=== PATIENT | female | born 1955 | race Caucasian/White ===

== ENCOUNTER 2018-04-19 14:03 | Emergency (ER) | payer OTHER, SELFPAY ==
[2018-04-19 14:08] VITALS: BP 163/88; PULSE 68; RESP 15; TEMP 36.8; O2SAT 99; BMI 20.7
--- NOTE | 2018-04-19 14:31 | DI.RAD.S_ITS ---
PROCEDURE: XR CHEST 1V INDICATIONS: chest pain TECHNIQUE: One view of the chest was acquired. COMPARISON: None. FINDINGS: Surgical changes and devices: None. Lungs and pleura: No pleural effusions or pneumothorax. There are paired nodular opacities in the lung bases compatible with nipple shadows. Mild apical pleural parenchymal thickening is demonstrated in the lung apices compatible with scarring. No acute consolidation. Mediastinum: Mediastinal contours appear normal. Heart size is normal. Bones and chest wall: No suspicious bony lesions. There is a mild rightward curvature of the thoracic spine. Overlying soft tissues appear unremarkable. IMPRESSION: 1. No definite acute cardiopulmonary disease. Dictated by: Micah Pride M.D. on 04/19/2018 at 15:10 Approved by: Micah Pride M.D. on 04/19/2018 at 15:12
[2018-04-19 14:36] LABS: Add Manual Diff / Slide Review NO; Basophils Percent Auto 1.1 % (0-2); Hematocrit 39.5 % (36-46); Hemoglobin 13.9 g/dL (12.0-16.0); Lymphocytes Percent Auto 37.4 % (25-40); Mean Corpuscular HGB Conc 35.2 % (30-36); Mean Corpuscular Hemoglobin 31.9 PG (26-34); Mean Corpuscular Volume 90.7 fL (80-100); Neutrophils Absolute Auto 2200 /uL (3000-5900); Neutrophils Percent Auto 52.5 % (50-75); Platelet Count 285 X10^3/uL (150-400); Red Blood Cell Count 4.36 X10^6/uL (4.0-5.2); Red Cell Distribution Width 12.2 % (11.6-14.8); White Blood Cell Count 4.2 X10^3/uL (4.5-11.0)
--- NOTE | 2018-04-19 14:42 | ED.CHESTPAIN ---
HPI - Chest Pain <DARYL Griffith - Last Filed: 04/19/18 18:04> General Chief Complaint: Chest Pain Stated Complaint: states high blood pressure, Chest Tightness,abd pa Time Seen by Provider: 04/19/18 14:28 Source: patient Mode of arrival: ambulatory Limitations: no limitations History of Present Illness HPI narrative: Patient is a 62-year-old female nonsmoker who presents with a chief complaint of chest tightness since approximately Wednesday. She states she has a history of high blood pressure and takes 5 mg of lisinopril nightly. She states last night she took 10 mg of lisinopril in order to get her blood pressure down. She says that her highest blood pressure at home was below 170 systolic. She denies any nausea vomiting or diarrhea. She denies any abdominal pain. She says she had a slight headache, but not bad enough to take Motrin. She describes her chest pain as a tightness throughout her chest. She has not taken anything at home. She denies any cough congestion or shortness of breath. Related Data Home Medications Medication Instructions Recorded Confirmed lisinopril 5 mg PO QPM 04/19/18 04/19/18 multivitamin 1 tab PO DAILY 04/19/18 04/19/18 Allergies Allergy/AdvReac Type Severity Reaction Status Date / Time No Known Drug Allergies Allergy Verified 04/19/18 14:07 Review of Systems <DARYL Griffith - Last Filed: 04/19/18 18:04> Review of Systems GENERAL: Denies chills, fatigue, malaise, fever, sweats. HEENT: Denies sinus pain, ear pain, sore throat, difficulty swallowing, dizziness. RESPIRATORY: Denies dyspnea, cough, wheezing, hemoptysis, sputum. CARDIOVASCULAR: See HPI GASTROINTESTINAL: Denies nausea, vomiting, abdominal pain, diarrhea, constipation, melena. : Denies dysuria, frequency, incontinence, hematuria, urinary retention. MUSCULOSKELETAL: denies weakness, joint pain, or bony pain SKIN: Denies rash, skin lesions, or other NEUROLOGIC: Denies weakness, headache, numbness, change in speech, confusion, seizures, incoordination. PSYCHIATRIC: No concerning psychosocial issues. 12 point review of systems is negative except for those stated above Exam <DARYL Griffith - Last Filed: 04/19/18 18:04> Narrative Exam Narrative: GENERAL: This is a well-nourished, well-developed patient, lying on back. HEAD: Atraumatic. Normocephalic. No temporal or scalp tenderness. EYES: Pupils equal round and reactive. Extraocular motions intact. No scleral icterus. No injection or drainage. ENT: Nose without bleeding, purulent drainage or septal hematoma. Throat without erythema, tonsillar hypertrophy or exudate. Uvula midline. Airway patent. NECK: Trachea midline. No JVD or lymphadenopathy. Supple, nontender, no meningeal signs. CARDIOVASCULAR: Regular rate and rhythm without murmurs, gallops, or rubs. RESPIRATORY: Clear to auscultation. Breath sounds equal bilaterally. No wheezes, rales, or rhonchi. No cough. No increased respiratory effort. No accessory muscle use. GASTROINTESTINAL: Abdomen soft, non-tender, nondistended. No hepato-splenomegaly, or palpable masses. No guarding. EXTREMITIES: No clubbing, cyanosis, or edema. No joint tenderness, effusion, or edema noted. BACK: Nontender without deformity or crepitance. No flank tenderness. NEURO: AOx3. SKIN: No rash or erythema. Initial Vital Signs Initial Vital Signs: Vital Signs Temperature 98.2 F 04/19/18 14:08 Pulse Rate 68 04/19/18 14:08 Respiratory Rate 15 04/19/18 14:08 Blood Pressure 163/88 H 04/19/18 14:08 Pulse Oximetry 99 04/19/18 14:08 <Soraya Garza DO - Last Filed: 04/20/18 11:43> Initial Vital Signs Initial Vital Signs: Vital Signs Temperature 98.2 F 04/19/18 14:08 Pulse Rate 68 04/19/18 14:08 Respiratory Rate 15 04/19/18 14:08 Blood Pressure 163/88 H 04/19/18 14:08 Pulse Oximetry 99 04/19/18 14:08 Course <DARYL GriffithBC - Last Filed: 04/19/18 18:04> Orders Ordered: Discontinued Medications Aspirin (Aspirin Chew) 324 mg PO NOW ONE Stop: 04/19/18 14:32 Last Admin: 04/19/18 14:46 Dose: 324 mg Sodium Chloride (Normal Saline 0.9%) 1,000 mls @ 150 mls/hr IV CONT KYLE Last Infusion: 04/19/18 16:51 Dose: 0 mls/hr Admin: 04/19/18 14:47 Dose: 150 mls/hr Vital Signs - 8 hr 04/19/18 14:08 04/19/18 15:30 04/19/18 16:00 Temperature 98.2 F Pulse Rate 68 71 Respiratory Rate 15 19 Blood Pressure 163/88 H Blood Pressure [Right Arm] 132/75 123/66 Pulse Oximetry 99 97 04/19/18 17:12 04/19/18 17:32 Temperature 98.2 F Pulse Rate 72 62 Respiratory Rate 14 19 Blood Pressure 135/75 Blood Pressure [Right Arm] 132/87 Pulse Oximetry 98 96 <Soraya Garza DO - Last Filed: 04/20/18 11:43> Orders Ordered: Discontinued Medications Aspirin (Aspirin Chew) 324 mg PO NOW ONE Stop: 04/19/18 14:32 Last Admin: 04/19/18 14:46 Dose: 324 mg Sodium Chloride (Normal Saline 0.9%) 1,000 mls @ 150 mls/hr IV CONT KYLE Last Infusion: 04/19/18 16:51 Dose: 0 mls/hr Admin: 04/19/18 14:47 Dose: 150 mls/hr Vital Signs - 8 hr 04/19/18 14:08 04/19/18 15:30 04/19/18 16:00 Temperature 98.2 F Pulse Rate 68 71 Respiratory Rate 15 19 Blood Pressure 163/88 H Blood Pressure [Right Arm] 132/75 123/66 Pulse Oximetry 99 97 04/19/18 17:12 04/19/18 17:32 Temperature 98.2 F Pulse Rate 72 62 Respiratory Rate 14 19 Blood Pressure 135/75 Blood Pressure [Right Arm] 132/87 Pulse Oximetry 98 96 MDM - Chest Pain <CONNOR Griffith - Last Filed: 04/19/18 18:04> Lab Data Result diagrams: 04/19/18 14:25 04/19/18 14:25 Lab Results 04/19/18 04/19/18 04/19/18 Range/Units 14:25 14:25 16:30 WBC 4.2 L (4.5-11.0) X10^3/uL RBC 4.36 (4.0-5.2) X10^6/uL Hgb 13.9 (12.0-16.0) g/dL Hct 39.5 (36-46) % MCV 90.7 (80-100) fL MCH 31.9 (26-34) PG MCHC 35.2 (30-36) % RDW 12.2 (11.6-14.8) % Plt Count 285 (150-400) X10^3/uL Neut % (Auto) 52.5 (50-75) % Lymph % (Auto) 37.4 (25-40) % [place] % (Auto) 8.0 (3-14) % Eos % (Auto) 1.0 L (2-4) % Baso % (Auto) 1.1 (0-2) % Neut # (Auto) 2200 L (1610-8103) /uL Sodium 143 (137-145) mmol/L Potassium 3.7 (3.4-5.1) mmol/L Chloride 102 (98-107) mmol/L Carbon Dioxide 28 (22-32) mmol/L BUN 10 (7-17) mg/dL Creatinine 0.60 (0.52-1.04) mg/dL Estimated GFR > 60.0 (>60) mL/min BUN/Creatinine Ratio 16.7 (6-22) Glucose 90 (80-110) mg/dL Calcium 9.0 (8.4-10.2) mg/dL Total Bilirubin 0.3 (0.2-1.3) mg/dL AST 36 (14-36) IU/L ALT 37 (9-52) IU/L Alkaline Phosphatase 60 (38-126) U/L Total Creatine Kinase 217 H 188 H (30-135) U/L CK-MB (CK-2) 1.56 1.35 (<2.37) ng/mL CK-MB (CK-2) Rel Index 0.7 L 0.7 L (1.5-5.0) % Troponin I < 0.012 < 0.012 (0.01-0.034) ng/mL Total Protein 7.4 (6.3-8.2) g/dL Albumin 4.6 (3.5-5.0) g/dL Globulin 2.8 (1.7-4.1) g/dL Albumin/Globulin Ratio 1.6 (1.0-2.8) Lipase 144 (23-300) U/L Imaging Data Chest x-ray: Radiologist's impression: [address] [address] XRay Report Signed Patient: Camilla Lr JMR#: [id number] : 5Acct:[id number] Age/Sex: 62 / FDate of Service: 04/19/18 Loc: ED Accession Number: [id number] Procedure: XR chest 1V Ordering Provider: Soraya Garza D.O. PROCEDURE: XR CHEST 1V INDICATIONS: chest pain TECHNIQUE: One view of the chest was acquired. COMPARISON: None. FINDINGS: Surgical changes and devices: None. Lungs and pleura: No pleural effusions or pneumothorax. There are paired nodular opacities in the lung bases compatible with nipple shadows. Mild apical pleural parenchymal thickening is demonstrated in the lung apices compatible with scarring. No acute consolidation. Mediastinum: Mediastinal contours appear normal. Heart size is normal. Bones and chest wall: No suspicious bony lesions. There is a mild rightward curvature of the thoracic spine. Overlying soft tissues appear unremarkable. IMPRESSION: 1. No definite acute cardiopulmonary disease. Dictated by: Micah Pride M.D. on 04/19/2018 at 15:10 Approved by: Micah Pride M.D. on 04/19/2018 at 15:12 [facility] Narrative Medical decision making narrative: Patient is a 62-year-old female who presents with a chief complaint of chest tightness and concern for high blood pressure. Her blood pressure was normal throughout her stay in the emergency department in the 120-130 systolic range. She had a normal CBC, CMP, normal chest x-ray and 2 negative troponins. Her requested that have her outpatient ultrasound performed while she was staying in the emergency department. I discussed that given she presented for chest pain and her ultrasound was a pelvic ultrasound, combined with the fact that she does not have an acute exam, stable vital signs and does not currently have any abdominal pain I would not do her pelvic ultrasound in the emergency department. I discussed follow-up with her primary care. I also discussed at length follow up with her primary care given her concern about her blood pressures. I discussed return precautions the emergency department including chest pain, shortness of breath or concern of [place] or stroke. Patient has been had no questions or concerns upon discharge. <Soraya Garza, DO - Last Filed: 04/20/18 11:43> Lab Data Attestation: I reviewed the patient's lab results. Lab Results 04/19/18 04/19/18 04/19/18 Range/Units 14:25 14:25 16:30 WBC 4.2 L (4.5-11.0) X10^3/uL RBC 4.36 (4.0-5.2) X10^6/uL Hgb 13.9 (12.0-16.0) g/dL Hct 39.5 (36-46) % MCV 90.7 (80-100) fL MCH 31.9 (26-34) PG MCHC 35.2 (30-36) % RDW 12.2 (11.6-14.8) % Plt Count 285 (150-400) X10^3/uL Neut % (Auto) 52.5 (50-75) % Lymph % (Auto) 37.4 (25-40) % [place] % (Auto) 8.0 (3-14) % Eos % (Auto) 1.0 L (2-4) % Baso % (Auto) 1.1 (0-2) % Neut # (Auto) 2200 L (1579-4996) /uL Sodium 143 (137-145) mmol/L Potassium 3.7 (3.4-5.1) mmol/L Chloride 102 (98-107) mmol/L Carbon Dioxide 28 (22-32) mmol/L BUN 10 (7-17) mg/dL Creatinine 0.60 (0.52-1.04) mg/dL Estimated GFR > 60.0 (>60) mL/min BUN/Creatinine Ratio 16.7 (6-22) Glucose 90 (80-110) mg/dL Calcium 9.0 (8.4-10.2) mg/dL Total Bilirubin 0.3 (0.2-1.3) mg/dL AST 36 (14-36) IU/L ALT 37 (9-52) IU/L Alkaline Phosphatase 60 (38-126) U/L Total Creatine Kinase 217 H 188 H (30-135) U/L CK-MB (CK-2) 1.56 1.35 (<2.37) ng/mL CK-MB (CK-2) Rel Index 0.7 L 0.7 L (1.5-5.0) % Troponin I < 0.012 < 0.012 (0.01-0.034) ng/mL Total Protein 7.4 (6.3-8.2) g/dL Albumin 4.6 (3.5-5.0) g/dL Globulin 2.8 (1.7-4.1) g/dL Albumin/Globulin Ratio 1.6 (1.0-2.8) Lipase 144 (23-300) U/L ECG Data Attestation: I personally reviewed and interpreted this ECG as follows: Prior ECG tracings: not available for review Interpretation: Normal sinus rhythm rate [address] changes no T-wave inversions here interval 146 Discharge Plan Departure Patient Disposition: Home Clinical Impression: Chest pain Discharge Date/Time: 04/19/18 17:33 Interventions: ED Discharge Assessment Last Done: 04/19/18 17:32 Instructions: Essential Hypertension, DI for Atypical Chest Pain, DI for Chest Pain Activity Restrictions/Additional Instructions: Your blood pressure has been very stable and healthy in the emergency department. I do not want to change any of her blood pressure medications at this point time. Your lab work came back normal, your EKG was good, and you had 2 sets of normal heart enzymes. Please follow-up with your primary care provider in the next few days. Come back to emergency department for any acute concerns including concern of heart attack or stroke. Prescriptions: No Action multivitamin Tablet 1 tab PO DAILY RF: 0 lisinopril 5 mg tablet 5 mg PO QPM RF: 0 <Soraya Garza DO - Last Filed: 04/20/18 11:43> Cosign ED Attending Claire Attestation: I was immediately available in the department for consultation. Documentation has been reviewed. I agree with assessment and plan.
[2018-04-19 14:43] LABS: Alanine Aminotransferase 37 IU/L (9-52); Albumin 4.6 g/dL (3.5-5.0); Albumin Globulin Ratio 1.6 (1.0-2.8); Alkaline Phosphatase 60 U/L (38-126); Aspartate Aminotransferase 36 IU/L (14-36); BUN Creatinine Ratio 16.7 (6-22); Bilirubin Total 0.3 mg/dL (0.2-1.3); Blood Urea Nitrogen 10 mg/dL (7-17); Carbon Dioxide 28 mmol/L (22-32); Chloride 102 mmol/L (98-107); Creatine Kinase 217 U/L (30-135); Estimated Glomerular Filt Rate > 60.0 mL/min (>60); Globulin 2.8 g/dL (1.7-4.1); Glucose 90 mg/dL (80-110); HEMOLYSIS < 15 (0-50); Lipase 144 U/L (23-300); Potassium 3.7 mmol/L (3.4-5.1); Sodium 143 mmol/L (137-145); Total Protein 7.4 g/dL (6.3-8.2)
--- NOTE | 2018-04-19 14:45 | ED_ITS ---
HPI - Chest Pain <DARYL Griffith - Last Filed: 04/19/18 18:04> General Chief Complaint: Chest Pain Stated Complaint: states high blood pressure, Chest Tightness,abd pa Time Seen by Provider: 04/19/18 14:28 Source: patient Mode of arrival: ambulatory Limitations: no limitations History of Present Illness HPI narrative: Patient is a 62-year-old female nonsmoker who presents with a chief complaint of chest tightness since approximately Wednesday. She states she has a history of high blood pressure and takes 5 mg of lisinopril nightly. She states last night she took 10 mg of lisinopril in order to get her blood pressure down. She says that her highest blood pressure at home was below 170 systolic. She denies any nausea vomiting or diarrhea. She denies any abdominal pain. She says she had a slight headache, but not bad enough to take Motrin. She describes her chest pain as a tightness throughout her chest. She has not taken anything at home. She denies any cough congestion or shortness of breath. Related Data Home Medications Medication Instructions Recorded Confirmed lisinopril 5 mg PO QPM 04/19/18 04/19/18 multivitamin 1 tab PO DAILY 04/19/18 04/19/18 Allergies Allergy/AdvReac Type Severity Reaction Status Date / Time No Known Drug Allergies Allergy Verified 04/19/18 14:07 Review of Systems <DARYL Griffith - Last Filed: 04/19/18 18:04> Review of Systems GENERAL: Denies chills, fatigue, malaise, fever, sweats. HEENT: Denies sinus pain, ear pain, sore throat, difficulty swallowing, dizziness. RESPIRATORY: Denies dyspnea, cough, wheezing, hemoptysis, sputum. CARDIOVASCULAR: See HPI GASTROINTESTINAL: Denies nausea, vomiting, abdominal pain, diarrhea, constipation, melena. : Denies dysuria, frequency, incontinence, hematuria, urinary retention. MUSCULOSKELETAL: denies weakness, joint pain, or bony pain SKIN: Denies rash, skin lesions, or other NEUROLOGIC: Denies weakness, headache, numbness, change in speech, confusion, seizures, incoordination. PSYCHIATRIC: No concerning psychosocial issues. 12 point review of systems is negative except for those stated above Exam <DARYL Griffith - Last Filed: 04/19/18 18:04> Narrative Exam Narrative: GENERAL: This is a well-nourished, well-developed patient, lying on back. HEAD: Atraumatic. Normocephalic. No temporal or scalp tenderness. EYES: Pupils equal round and reactive. Extraocular motions intact. No scleral icterus. No injection or drainage. ENT: Nose without bleeding, purulent drainage or septal hematoma. Throat without erythema, tonsillar hypertrophy or exudate. Uvula midline. Airway patent. NECK: Trachea midline. No JVD or lymphadenopathy. Supple, nontender, no meningeal signs. CARDIOVASCULAR: Regular rate and rhythm without murmurs, gallops, or rubs. RESPIRATORY: Clear to auscultation. Breath sounds equal bilaterally. No wheezes , rales, or rhonchi. No cough. No increased respiratory effort. No accessory muscle use. GASTROINTESTINAL: Abdomen soft, non-tender, nondistended. No hepato-splenomegaly , or palpable masses. No guarding. EXTREMITIES: No clubbing, cyanosis, or edema. No joint tenderness, effusion, or edema noted. BACK: Nontender without deformity or crepitance. No flank tenderness. NEURO: AOx3. SKIN: No rash or erythema. Initial Vital Signs Initial Vital Signs: Vital Signs Temperature 98.2 F 04/19/18 14:08 Pulse Rate 68 04/19/18 14:08 Respiratory Rate 15 04/19/18 14:08 Blood Pressure 163/88 H 04/19/18 14:08 Pulse Oximetry 99 04/19/18 14:08 <Soraya Garza DO - Last Filed: 04/20/18 11:43> Initial Vital Signs Initial Vital Signs: Vital Signs Temperature 98.2 F 04/19/18 14:08 Pulse Rate 68 04/19/18 14:08 Respiratory Rate 15 04/19/18 14:08 Blood Pressure 163/88 H 04/19/18 14:08 Pulse Oximetry 99 04/19/18 14:08 Course <DARYL GriffithBC - Last Filed: 04/19/18 18:04> Orders Ordered: Discontinued Medications Aspirin (Aspirin Chew) 324 mg PO NOW ONE Stop: 04/19/18 14:32 Last Admin: 04/19/18 14:46 Dose: 324 mg Sodium Chloride (Normal Saline 0.9%) 1,000 mls @ 150 mls/hr IV CONT KYLE Last Infusion: 04/19/18 16:51 Dose: 0 mls/hr Admin: 04/19/18 14:47 Dose: 150 mls/hr Vital Signs - 8 hr 04/19/18 14:08 04/19/18 15:30 04/19/18 16:00 Temperature 98.2 F Pulse Rate 68 71 Respiratory Rate 15 19 Blood Pressure 163/88 H Blood Pressure [Right Arm] 132/75 123/66 Pulse Oximetry 99 97 04/19/18 17:12 04/19/18 17:32 Temperature 98.2 F Pulse Rate 72 62 Respiratory Rate 14 19 Blood Pressure 135/75 Blood Pressure [Right Arm] 132/87 Pulse Oximetry 98 96 <Soraya Garza DO - Last Filed: 04/20/18 11:43> Orders Ordered: Discontinued Medications Aspirin (Aspirin Chew) 324 mg PO NOW ONE Stop: 04/19/18 14:32 Last Admin: 04/19/18 14:46 Dose: 324 mg Sodium Chloride (Normal Saline 0.9%) 1,000 mls @ 150 mls/hr IV CONT KYLE Last Infusion: 04/19/18 16:51 Dose: 0 mls/hr Admin: 04/19/18 14:47 Dose: 150 mls/hr Vital Signs - 8 hr 04/19/18 14:08 04/19/18 15:30 04/19/18 16:00 Temperature 98.2 F Pulse Rate 68 71 Respiratory Rate 15 19 Blood Pressure 163/88 H Blood Pressure [Right Arm] 132/75 123/66 Pulse Oximetry 99 97 04/19/18 17:12 04/19/18 17:32 Temperature 98.2 F Pulse Rate 72 62 Respiratory Rate 14 19 Blood Pressure 135/75 Blood Pressure [Right Arm] 132/87 Pulse Oximetry 98 96 MDM - Chest Pain <CONNOR Griffith - Last Filed: 04/19/18 18:04> Lab Data Result diagrams: 04/19/18 14:25 04/19/18 14:25 Lab Results 04/19/18 04/19/18 04/19/18 Range/Units 14:25 14:25 16:30 WBC 4.2 L (4.5-11.0) X10^3/uL RBC 4.36 (4.0-5.2) X10^6/uL Hgb 13.9 (12.0-16.0) g/dL Hct 39.5 (36-46) % MCV 90.7 (80-100) fL MCH 31.9 (26-34) PG MCHC 35.2 (30-36) % RDW 12.2 (11.6-14.8) % Plt Count 285 (150-400) X10^3/uL Neut % (Auto) 52.5 (50-75) % Lymph % (Auto) 37.4 (25-40) % [place] % (Auto) 8.0 (3-14) % Eos % (Auto) 1.0 L (2-4) % Baso % (Auto) 1.1 (0-2) % Neut # (Auto) 2200 L (7807-8124) /uL Sodium 143 (137-145) mmol/L Potassium 3.7 (3.4-5.1) mmol/L Chloride 102 (98-107) mmol/L Carbon Dioxide 28 (22-32) mmol/L BUN 10 (7-17) mg/dL Creatinine 0.60 (0.52-1.04) mg/dL Estimated GFR > 60.0 (>60) mL/min BUN/Creatinine Ratio 16.7 (6-22) Glucose 90 (80-110) mg/dL Calcium 9.0 (8.4-10.2) mg/dL Total Bilirubin 0.3 (0.2-1.3) mg/dL AST 36 (14-36) IU/L ALT 37 (9-52) IU/L Alkaline Phosphatase 60 (38-126) U/L Total Creatine Kinase 217 H 188 H (30-135) U/L CK-MB (CK-2) 1.56 1.35 (<2.37) ng/mL CK-MB (CK-2) Rel Index 0.7 L 0.7 L (1.5-5.0) % Troponin I < 0.012 < 0.012 (0.01-0.034) ng/mL Total Protein 7.4 (6.3-8.2) g/dL Albumin 4.6 (3.5-5.0) g/dL Globulin 2.8 (1.7-4.1) g/dL Albumin/Globulin Ratio 1.6 (1.0-2.8) Lipase 144 (23-300) U/L Imaging Data Chest x-ray: Radiologist's impression: [address] [address] XRay Report Signed Patient: Camilla Lr JMR#: [id number] : 5Acct:[id number] Age/Sex: 62 / FDate of Service: 04/19/18 Loc: ED Accession Number: [id number] Procedure: XR chest 1V Ordering Provider: Soraya Garza D.O. PROCEDURE: XR CHEST 1V INDICATIONS: chest pain TECHNIQUE: One view of the chest was acquired. COMPARISON: None. FINDINGS: Surgical changes and devices: None. Lungs and pleura: No pleural effusions or pneumothorax. There are paired nodular opacities in the lung bases compatible with nipple shadows. Mild apical pleural parenchymal thickening is demonstrated in the lung apices compatible with scarring. No acute consolidation. Mediastinum: Mediastinal contours appear normal. Heart size is normal. Bones and chest wall: No suspicious bony lesions. There is a mild rightward curvature of the thoracic spine. Overlying soft tissues appear unremarkable. IMPRESSION: 1. No definite acute cardiopulmonary disease. Dictated by: Micah Pride M.D. on 04/19/2018 at 15:10 Approved by: Micah Pride M.D. on 04/19/2018 at 15:12 [facility] Narrative Medical decision making narrative: Patient is a 62-year-old female who presents with a chief complaint of chest tightness and concern for high blood pressure. Her blood pressure was normal throughout her stay in the emergency department in the 120-130 systolic range. She had a normal CBC, CMP, normal chest x-ray and 2 negative troponins. Her requested that have her outpatient ultrasound performed while she was staying in the emergency department. I discussed that given she presented for chest pain and her ultrasound was a pelvic ultrasound, combined with the fact that she does not have an acute exam, stable vital signs and does not currently have any abdominal pain I would not do her pelvic ultrasound in the emergency department. I discussed follow-up with her primary care. I also discussed at length follow up with her primary care given her concern about her blood pressures. I discussed return precautions the emergency department including chest pain, shortness of breath or concern of [place] or stroke. Patient has been had no questions or concerns upon discharge. <Soraya Garza, DO - Last Filed: 04/20/18 11:43> Lab Data Attestation: I reviewed the patient's lab results. Lab Results 04/19/18 04/19/18 04/19/18 Range/Units 14:25 14:25 16:30 WBC 4.2 L (4.5-11.0) X10^3/uL RBC 4.36 (4.0-5.2) X10^6/uL Hgb 13.9 (12.0-16.0) g/dL Hct 39.5 (36-46) % MCV 90.7 (80-100) fL MCH 31.9 (26-34) PG MCHC 35.2 (30-36) % RDW 12.2 (11.6-14.8) % Plt Count 285 (150-400) X10^3/uL Neut % (Auto) 52.5 (50-75) % Lymph % (Auto) 37.4 (25-40) % [place] % (Auto) 8.0 (3-14) % Eos % (Auto) 1.0 L (2-4) % Baso % (Auto) 1.1 (0-2) % Neut # (Auto) 2200 L (1172-8495) /uL Sodium 143 (137-145) mmol/L Potassium 3.7 (3.4-5.1) mmol/L Chloride 102 (98-107) mmol/L Carbon Dioxide 28 (22-32) mmol/L BUN 10 (7-17) mg/dL Creatinine 0.60 (0.52-1.04) mg/dL Estimated GFR > 60.0 (>60) mL/min BUN/Creatinine Ratio 16.7 (6-22) Glucose 90 (80-110) mg/dL Calcium 9.0 (8.4-10.2) mg/dL Total Bilirubin 0.3 (0.2-1.3) mg/dL AST 36 (14-36) IU/L ALT 37 (9-52) IU/L Alkaline Phosphatase 60 (38-126) U/L Total Creatine Kinase 217 H 188 H (30-135) U/L CK-MB (CK-2) 1.56 1.35 (<2.37) ng/mL CK-MB (CK-2) Rel Index 0.7 L 0.7 L (1.5-5.0) % Troponin I < 0.012 < 0.012 (0.01-0.034) ng/mL Total Protein 7.4 (6.3-8.2) g/dL Albumin 4.6 (3.5-5.0) g/dL Globulin 2.8 (1.7-4.1) g/dL Albumin/Globulin Ratio 1.6 (1.0-2.8) Lipase 144 (23-300) U/L ECG Data Attestation: I personally reviewed and interpreted this ECG as follows: Prior ECG tracings: not available for review Interpretation: Normal sinus rhythm rate [address] changes no T-wave inversions here interval 146 Discharge Plan Departure Patient Disposition: Home Clinical Impression: Chest pain Discharge Date/Time: 04/19/18 17:33 Interventions: ED Discharge Assessment Last Done: 04/19/18 17:32 Instructions: Essential Hypertension, DI for Atypical Chest Pain, DI for Chest Pain Activity Restrictions/Additional Instructions: Your blood pressure has been very stable and healthy in the emergency department. I do not want to change any of her blood pressure medications at this point time. Your lab work came back normal, your EKG was good, and you had 2 sets of normal heart enzymes. Please follow-up with your primary care provider in the next few days. Come back to emergency department for any acute concerns including concern of heart attack or stroke. Prescriptions: No Action multivitamin Tablet 1 tab PO DAILY RF: 0 lisinopril 5 mg tablet 5 mg PO QPM RF: 0 <Soraya Garza DO - Last Filed: 04/20/18 11:43> Cosign ED Attending Claire Attestation: I was immediately available in the department for consultation. Documentation has been reviewed. I agree with assessment and plan.
[2018-04-19] MEDS: ASPIRIN 81 MG TAB 324 MG PO (14:46)
[2018-04-19] MEDS: SODIUM CHLORIDE 0.9% 1,000 ML 150 ML IV (14:47)
[2018-04-19 14:58] LABS: CKMB % Relative Index 0.7 % (1.5-5.0); Creatine Kinase MB 1.56 ng/mL (<2.37)
[2018-04-19 15:01] LABS: Troponin I < 0.012 ng/mL (0.01-0.034)
[2018-04-19 15:30] VITALS: BP 132/75; PULSE 71; RESP 19; O2SAT 97
[2018-04-19 16:00] VITALS: BP 123/66
[2018-04-19 16:51] LABS: Creatine Kinase 188 U/L (30-135)
[2018-04-19 17:06] LABS: CKMB % Relative Index 0.7 % (1.5-5.0); Creatine Kinase MB 1.35 ng/mL (<2.37); Troponin I < 0.012 ng/mL (0.01-0.034)
[2018-04-19 17:12] VITALS: BP 132/87; PULSE 72; RESP 14; O2SAT 98
[2018-04-19 17:32] VITALS: BP 135/75; PULSE 62; RESP 19; TEMP 36.8; O2SAT 96
== END 2018-04-19 17:33 | disposition home or self-care (01) ==
PROVIDERS: Emergency Medicine; Emergency Provider Nurse Practitioner Family
DX: R07.89 Other chest pain (principal)
CPT/HCPCS: 36591; 71045; 80053; 82550; 82553; 83690; 84484; 85025; 93005; 93010; 96360; 96361; 99283; 99285

== ENCOUNTER 2021-07-15 10:46 | Emergency (ER) | payer OTHER, SELFPAY ==
[2021-07-15] VITALS (8 sets, daily range): BP systolic 144–184; BP diastolic 79–97; PULSE 57–75; RESP 18; TEMP 36.6; O2SAT 97–100; BMI 21.1
--- NOTE | 2021-07-15 12:09 | ED.BACK ---
HPI - Back Pain/Injury <Esme Ortega PA-C - Last Filed: 07/15/21 18:57> General Chief Complaint: Back Pain/Injury Stated Complaint: Left leg/hip/numbness of foot Time Seen by Provider: 07/15/21 12:05 Source: patient and family History of Present Illness HPI Narrative: 65-year-old female with past medical history hypertension, osteoarthritis presents to the ED with 2 weeks of sciatica. Patient states that she has had lower back and sciatic pain over the past few years, however it has worsened over the last 2 weeks, going down the left leg. Patient endorses some numbness to the left toes. Denies tingling, weakness. Patient denies saddle paresthesias. Patient denies urinary hesitancy, urinary incontinence, bowel incontinence. Patient denies IV drug use. Patient denies neck stiffness, neck pain, fever, chills. Patient denies trauma. Patient endorses that she is physically very active, working out and suspects she might have tweaked her back in the process. Related Data Home Medications Medication Instructions Recorded Confirmed lisinopril 5 mg tablet 5 mg PO QPM 04/19/18 04/19/18 multivitamin 1 tab PO DAILY 04/19/18 04/19/18 Allergies Allergy/AdvReac Type Severity Reaction Status Date / Time No Known Drug Allergies Allergy Verified 04/19/18 14:07 Review of Systems <Esme Ortega PA-C - Last Filed: 07/15/21 18:57> Review of Systems ROS Unobtainable: All systems reviewed & are unremarkable except as noted in HPI and below Constitutional Constitutional: Denies chills, Denies fatigue, Denies fever(s), Denies frequent falls, Denies lethargy and Denies weakness Eyes Eyes: Denies change in vision, Denies eye discharge, Denies irritation and Denies loss of vision ENT Ears, Nose, Mouth, and Throat: Denies change in voice, Denies dizziness, Reports dry mouth, Denies neck pain, Denies sore throat and Denies throat swelling Cardiovascular Cardiovascular: Denies chest pain, Denies irregular heart rhythm, Denies lightheadedness, Denies palpitations, Denies dyspnea, Denies dyspnea on exertion and Denies orthopnea Respiratory Respiratory: Denies cough, Denies dyspnea, Denies dyspnea on exertion and Denies wheezing Gastrointestinal Gastrointestinal: Denies abdominal pain, Denies change in bowel habits, Denies fecal incontinence, Denies diarrhea, Denies nausea and Denies vomiting Genitourinary Genitourinary: Denies hematuria, Denies flank pain, Denies urinary incontinence, Denies urinary hesitancy and Denies urinary urgency Musculoskeletal Musculoskeletal: Reports back pain, Denies muscle weakness, Denies neck pain, Denies numbness, Reports radiating pain into limb and Denies tingling Comments: Lower back pain radiating to the left leg. Numbness in left toes. Denies tingling, weakness Integumentary/Breasts Skin/Breast: Denies pruritus, Denies erythema, Denies rash and Denies wounds Neurologic Neurologic: Denies behavioral changes, Denies confusion, Denies dizziness, Denies frequent falls, Denies loss of vision, Denies numbness, Denies tingling and Denies weakness Comments: No saddle paresthesia Psychiatric Psychiatric: Denies anxiety, Denies behavioral changes, Denies confusion, Denies depression, Denies homicidal ideation and Denies suicidal ideation Endocrine Endocrine: Denies fatigue, Denies flushing and Denies palpitations Hematologic/Lymphatic Hematologic/Lymphatic: Denies easy bruising Allergic/Immunologic Allergic/Immunologic: Denies urticaria, Denies throat swelling and Denies wheezing Patient History <Esme Ortega PA-C - Last Filed: 07/15/21 18:57> Medical History (Updated 07/15/21 @ 17:46 by Esme Ortega PA-C) Hypertension Social History Smoking Status: Never smoker Smoking Status: Never smoker Exam <Esme Ortega PA-C - Last Filed: 07/15/21 18:57> Initial Vital Signs Initial Vital Signs: Vital Signs Pulse Rate 72 07/15/21 11:02 Blood Pressure 184/97 H 07/15/21 11:02 Pulse Oximetry 100 07/15/21 11:02 Const General: cooperative, healthy appearing and comfortable [facility] Head: normal to inspection Eyes General: appearance normal, both eyes and all related structures Neck Neck: normal visual inspection Resp Effort & Inspection: normal respiratory effort Auscultation: clear to auscultation bilaterally Cardio Rate: regular rate Rhythm: regular rhythm Back/Spine/Pelvis Back: normal to inspection, No back tenderness and No CVA tenderness Thoracic/Lumbar Spine: straight leg raise positive (Left leg) Other: No midline tenderness to palpation. Skin General: no rashes or lesions noted Neuro General: patient alert, patient awake and patient oriented x3 Extrem General: normal to inspection Psych Appearance: grossly normal Mental Status: mental status grossly normal <Soraya Garza DO - Last Filed: 07/16/21 07:31> Initial Vital Signs Initial Vital Signs: Vital Signs Pulse Rate 72 07/15/21 11:02 Blood Pressure 184/97 H 07/15/21 11:02 Pulse Oximetry 100 07/15/21 11:02 Course <Esme Ortega PA-C - Last Filed: 07/15/21 18:57> Orders Ordered: Discontinued Medications Ketorolac Tromethamine (Ketorolac 30 Mg/Ml Vial) 15 mg IM NOW ONE Stop: 07/15/21 12:52 Last Admin: 07/15/21 13:10 Dose: 15 mg Documented by: HIRA Lidocaine (Lidocaine Patch 1 Each Adh..Patch) 1 each TOP NOW ONE Stop: 07/15/21 12:53 Last Admin: 07/15/21 13:11 Dose: 1 each Documented by: HIRA Lorazepam (Lorazepam 0.5 Mg Tablet) 1 mg PO NOW ONE Stop: 07/15/21 16:02 Last Admin: 07/15/21 16:16 Dose: 1 mg Documented by: HIRA Vital Signs Vital signs: Vital Signs - 8 hr 07/15/21 11:02 07/15/21 11:03 07/15/21 11:30 Temperature 97.8 F Pulse Rate 72 66 65 Respiratory Rate 18 Blood Pressure 184/97 H 184/97 H 151/79 H Pulse Oximetry 100 99 99 07/15/21 12:00 07/15/21 12:30 07/15/21 16:38 Temperature Pulse Rate 59 L 57 L 75 Respiratory Rate Blood Pressure 144/84 H 151/80 H Pulse Oximetry 98 97 99 07/15/21 16:39 07/15/21 17:59 Temperature Pulse Rate 71 70 Respiratory Rate Blood Pressure 165/79 H 173/85 H Pulse Oximetry 99 97 <DO Rito Buenrostro Last Filed: 07/16/21 07:31> Orders Ordered: Discontinued Medications Ketorolac Tromethamine (Ketorolac 30 Mg/Ml Vial) 15 mg IM NOW ONE Stop: 07/15/21 12:52 Last Admin: 07/15/21 13:10 Dose: 15 mg Documented by: HIRA Lidocaine (Lidocaine Patch 1 Each Adh..Patch) 1 each TOP NOW ONE Stop: 07/15/21 12:53 Last Admin: 07/15/21 13:11 Dose: 1 each Documented by: HIRA Lorazepam (Lorazepam 0.5 Mg Tablet) 1 mg PO NOW ONE Stop: 07/15/21 16:02 Last Admin: 07/15/21 16:16 Dose: 1 mg Documented by: HIRA Vital Signs Vital signs: Vital Signs - 8 hr 07/15/21 11:02 07/15/21 11:03 07/15/21 11:30 Temperature 97.8 F Pulse Rate 72 66 65 Respiratory Rate 18 Blood Pressure 184/97 H 184/97 H 151/79 H Pulse Oximetry 100 99 99 07/15/21 12:00 07/15/21 12:30 07/15/21 16:38 Temperature Pulse Rate 59 L 57 L 75 Respiratory Rate Blood Pressure 144/84 H 151/80 H Pulse Oximetry 98 97 99 07/15/21 16:39 07/15/21 17:59 Temperature Pulse Rate 71 70 Respiratory Rate Blood Pressure 165/79 H 173/85 H Pulse Oximetry 99 97 MDM - Back Pain/Injury <Esme Ortega PA-C - Last Filed: 07/15/21 18:57> Lab Data Labs: Urine Dip Bedside Urine Glucose Negative Bedside Urine Bilirubin - Negative Bedside Urine Ketone - Negative Urine Specific [place] 1.005 Bedside Urine Occult Blood - Negative Bedside Urine pH 6.0 Bedside Urine Protein - Negative Bedside Urine Urobilinogen - Negative Bedside Urine Nitrite - Negative Bedside Urine Leukocytes - Negative Esterase Imaging Data MRI lumbar spine: Radiologist's Impression: PROCEDURE:? MR LUMBAR SPINE WO CON ? INDICATIONS:? Left sided sciatica ? TECHNIQUE:? Noncontrast sagittal T1 spin echo and T2 fast echo, sagittal STIR, axial T1 and T2 fast spin echo through the lumbar spine.? In cases with scoliosis, additional coronal T2 fast spin echo may be performed.? ? COMPARISON:? None. ? FINDINGS:? Image quality:? Excellent.? ? Alignment and Curvature:? Convex left thoracolumbar scoliosis present. ? Bone Marrow:? Marrow is of normal overall signal.? No acute vertebral body compression fractures.? ? Spinal Cord:? Conus medullaris terminates at the L1 level.? Visualized cord demonstrates normal signal and size.? ? Paraspinous Soft Tissues:? No paravertebral masses.? ? T12-L1:? Disc height is maintained.? No central or foraminal stenosis. ? L1-L2:? Disc space narrowing and circumferential disc bulge results in mild central stenosis.? Moderate right and no left foraminal stenosis. ? L2-L3:? Disc space narrowing and circumferential disc bulge present.? No central stenosis.? Moderate right and no left foraminal stenosis ? L3-L4:? Disc space narrowing circumferential disc bulge and hypertrophic facet joints results in mild central stenosis.? No foraminal stenosis present. ? L4-L5:? Circumferential disc bulge and hypertrophic facet joints with ligamentum flavum laxity present.? There is a focal 6 mm left subarticular disc protrusion with inferior migration fills the left lateral recess and extends inferiorly to the inferior aspect of the L5 vertebral body. ? L5-S1:? Disc height is maintained.? No central or foraminal stenosis. ? ? IMPRESSION:? ? 1. L4-5 6 mm left subarticular disc protrusion/extrusion fills the left lateral recess and extends inferiorly behind the L5 vertebral body, displacing the descending nerve root. ? 2. Multilevel degenerative disc disease and arthropathy results in varying degrees of central and foraminal stenosis including moderate right foraminal stenosis at L1-2 and L2-3 ? Approved by: Adriano Caraballo M.D. on 07/15/2021 at 16:37? [facility] Narrative Medical decision making narrative: 65-year-old female with past medical history hypertension, osteoarthritis presents to the ED with 2 weeks of sciatica. Concern for disc herniation versus musculoskeletal sprain/strain. Will give Toradol, lidocaine for pain. Will consider MRI lumbar spine. Will reassess. MRI shows L4-5 6 mm left subarticular disc protrusion/extrusion fills the left lateral recess and extends inferiorly behind the L5 vertebral body, displacing the descending nerve root. Patient will follow up with PCP for PT referral and further treatment. ED return precautions discussed. Patient verbalized understanding. Patient discharged home. <Soraya Garza DO - Last Filed: 07/16/21 07:31> Lab Data Labs: Urine Dip Bedside Urine Glucose Negative Bedside Urine Bilirubin - Negative Bedside Urine Ketone - Negative Urine Specific [place] 1.005 Bedside Urine Occult Blood - Negative Bedside Urine pH 6.0 Bedside Urine Protein - Negative Bedside Urine Urobilinogen - Negative Bedside Urine Nitrite - Negative Bedside Urine Leukocytes - Negative Esterase Discharge Plan Departure Patient Disposition: Home Clinical Impression: Lumbar disc herniation Instructions: DI for Back Pain With Sciatica Activity Restrictions/Additional Instructions: You were evaluated in the ED today for lower back pain radiating down the left leg. Your MRI shows a disc protrusion/extrusion at L4-5. Your symptoms are likely due to the herniated disc impinging on urine your that goes down the leg. You may continue to take ibuprofen, Tylenol for your symptoms. Please follow-up with your PCP as soon as possible for further treatment, referral to physical therapy. Return to the ED if your symptoms worsen, you experience urinary incontinence, stool incontinence, numbness in the genital region, tingling, weakness. Prescriptions: No Action multivitamin Tablet 1 tab PO DAILY 0RF lisinopril 5 mg tablet 5 mg PO QPM 0RF Referrals: Han Boston DO [Primary Care Provider] - <Soraya Garza DO - Last Filed: 07/16/21 07:31> Cosign ED Attending Maria Elenaature Attestation: I was immediately available in the department for consultation. Documentation has been reviewed. I agree with assessment and plan.
--- NOTE | 2021-07-15 12:53 | DI.MRI.S_ITS ---
PROCEDURE: MR LUMBAR SPINE WO CON INDICATIONS: Left sided sciatica TECHNIQUE: Noncontrast sagittal T1 spin echo and T2 fast echo, sagittal STIR, axial T1 and T2 fast spin echo through the lumbar spine. In cases with scoliosis, additional coronal T2 fast spin echo may be performed. COMPARISON: None. FINDINGS: Image quality: Excellent. Alignment and Curvature: Convex left thoracolumbar scoliosis present. Bone Marrow: Marrow is of normal overall signal. No acute vertebral body compression fractures. Spinal Cord: Conus medullaris terminates at the L1 level. Visualized cord demonstrates normal signal and size. Paraspinous Soft Tissues: No paravertebral masses. T12-L1: Disc height is maintained. No central or foraminal stenosis. L1-L2: Disc space narrowing and circumferential disc bulge results in mild central stenosis. Moderate right and no left foraminal stenosis. L2-L3: Disc space narrowing and circumferential disc bulge present. No central stenosis. Moderate right and no left foraminal stenosis L3-L4: Disc space narrowing circumferential disc bulge and hypertrophic facet joints results in mild central stenosis. No foraminal stenosis present. L4-L5: Circumferential disc bulge and hypertrophic facet joints with ligamentum flavum laxity present. There is a focal 6 mm left subarticular disc protrusion with inferior migration fills the left lateral recess and extends inferiorly to the inferior aspect of the L5 vertebral body. L5-S1: Disc height is maintained. No central or foraminal stenosis. IMPRESSION: 1. L4-5 6 mm left subarticular disc protrusion/extrusion fills the left lateral recess and extends inferiorly behind the L5 vertebral body, displacing the descending nerve root. 2. Multilevel degenerative disc disease and arthropathy results in varying degrees of central and foraminal stenosis including moderate right foraminal stenosis at L1-2 and L2-3 Approved by: Adriano Caraballo M.D. on 07/15/2021 at 16:37
[2021-07-15] MEDS: KETOROLAC 30 MG/ML VIAL 15 MG IM (13:10)
[2021-07-15] MEDS: LIDOCAINE PATCH 1 EACH ADH..PATCH TOP (13:11)
[2021-07-15] MEDS: LORazepam 0.5 MG TABLET 1 MG PO (16:16)
== END 2021-07-15 18:00 | disposition home or self-care (01) ==
PROVIDERS: Emergency Provider Student in an Organized Health Care Education/Training Program; PCP Family Medicine
DX: M51.26 Other intervertebral disc displacement, lumbar region (principal)
CPT/HCPCS: 72148; 81003; 96372; 99283; 99284; J1885

== ENCOUNTER 2021-11-19 10:38 | Emergency (ER) | payer OTHER, SELFPAY ==
[2021-11-19] VITALS (7 sets, daily range): BP systolic 156–189; BP diastolic 73–87; PULSE 55–67; RESP 15–18; TEMP 36.2–36.4; O2SAT 97–100; BMI 20.2
--- NOTE | 2021-11-19 10:54 | DI.RAD.S_ITS ---
PROCEDURE: XR CHEST 2V INDICATIONS: shortness of breath TECHNIQUE: 2 views of the chest were acquired. COMPARISON: [facility], , XR CHEST 1V, 04/19/2018, 14:43. FINDINGS: Surgical changes and devices: None. Lungs and pleura: Lungs are clear. No pleural effusions or pneumothorax. Mediastinum: Mediastinal contours are normal. Heart size is normal. Bones and chest wall: Thoraco-lumbar spine scoliosis. No suspicious bony abnormalities. Soft tissues appear unremarkable. IMPRESSION: No acute cardiopulmonary disease process. Dictated by: Deidre Hsieh MD, PhD on 11/19/2021 at 11:31 Approved by: Deidre Hsieh MD, PhD on 11/19/2021 at 11:32
[2021-11-19 12:15] LABS: Add Manual Diff / Slide Review NO; Basophils Absolute Auto 0 /uL (0-100); Basophils Percent Auto 0.7 % (0-2); Eosinophils Absolute Auto 100 /uL (0-450); Eosinophils Percent Auto 2.1 % (2-4); Hematocrit 38.3 % (36-46); Hemoglobin 13.5 g/dL (12.0-16.0); Lymphocytes Absolute Auto 1200 /uL (1100-4500); Lymphocytes Percent Auto 19.1 % (25-40); Mean Corpuscular HGB Conc 35.2 % (30-36); Mean Corpuscular Hemoglobin 32.2 PG (26-34); Mean Corpuscular Volume 91.7 fL (80-100); Monocytes Absolute Auto 700 /uL (0-900); Monocytes Percent Auto 10.6 % (3-14); Neutrophils Absolute Auto 4200 /uL (1500-7000); Neutrophils Percent Auto 67.5 % (50-75); Platelet Count 235 X10^3/uL (150-400); Red Blood Cell Count 4.18 X10^6/uL (4.0-5.2); Red Cell Distribution Width 12.2 % (11.6-14.8); White Blood Cell Count 6.3 X10^3/uL (4.5-11.0)
[2021-11-19 12:24] LABS: Lactate (Lactic Acid) 0.9 mmol/L (0.7-2.1)
[2021-11-19 12:26] LABS: Alanine Aminotransferase 42 IU/L (<35); Albumin 4.5 g/dL (3.5-5.0); Albumin Globulin Ratio 1.7 (1.0-2.8); Alkaline Phosphatase 73 U/L (38-126); Aspartate Aminotransferase 43 IU/L (14-36); BUN Creatinine Ratio 23.3 (6-22); Bilirubin Total 0.6 mg/dL (0.2-1.3); Blood Urea Nitrogen 14 mg/dL (7-17); Calcium 8.7 mg/dL (8.4-10.2); Carbon Dioxide 29 mmol/L (22-32); Chloride 100 mmol/L (98-107); Estimated Glomerular Filt Rate > 60 mL/min (>60); Globulin 2.7 g/dL (1.7-4.1); Glucose 91 mg/dL (80-110); HEMOLYSIS < 15 (0-50); Potassium 4.4 mmol/L (3.4-5.1); Sodium 136 mmol/L (137-145); Total Protein 7.2 g/dL (6.3-8.2)
--- NOTE | 2021-11-19 14:59 | ED.SOB ---
HPI - SOB/Dyspnea <GERMANIA Mejía - Last Filed: 11/19/21 17:35> General Chief Complaint: Shortness of Breath/Dyspnea Stated Complaint: sob at night x7 days getting worse Time Seen by Provider: 11/19/21 14:43 Source: patient Mode of arrival: Ambulatory Limitations: no limitations History of Present Illness HPI Narrative: This is a 65-year-old female presents to emergency department complaining of shortness of breath, especially at night when she lays down, states this has been ongoing for the last seven days and she is had a dry cough for about that time. She denies any history of asthma, COPD, she is not a smoker, states that she takes losartan and Crestor for her blood pressure, she endorses a history of bronchitis in the past. She states that after a coughing fit she feels short of breath and can not get enough air. She feels like this has happened at nighttime and she was afraid that she would not be able to call 911 due to her shortness of breath. She denies any sensation of wheezing, denies any allergies, denies any history of seasonal allergies. She denies any recent fever, denies a productive cough, states that she had a slightly runny nose yesterday but that been it as far as cold symptoms. She states that her son has exercise induced asthma, she has never had this diagnosis but she reports that she feels the way that he has looked during an exacerbation. She states that her primary care provider is Dr. Monserrat Boston. Related Data Home Medications Medication Instructions Recorded Confirmed lisinopril 5 mg tablet 5 mg PO QPM 04/19/18 04/19/18 multivitamin 1 tab PO DAILY 04/19/18 04/19/18 Previous Rx's Medication Instructions Recorded albuterol sulfate 90 mcg/actuation 1 inh inhalation QID PRN shortness 11/19/21 aerosol inhaler of breath or wheezing #6.7 grams benzonatate 200 mg capsule 200 mg PO BID PRN cough #14 caps 11/19/21 methylprednisolone 4 mg tablets in See Rx Instructions PO .COMPLEX 11/19/21 a dose pack (Medrol (Arsenio)) #21 ea Allergies Allergy/AdvReac Type Severity Reaction Status Date / Time No Known Drug Allergies Allergy Verified 11/19/21 10:49 Review of Systems <GERMANIA Mejía - Last Filed: 11/19/21 17:35> Review of Systems Narrative: General: denies fever, chills Head/Neck: denies headache, neck pain Eyes: denies visual changes, eye pain Cardio: denies chest pain, palpitations Respiratory: Endorses shortness of breath at rest, states that it feels tight, denies any current cough, denies wheezing GI: denies abdominal pain, nausea, vomiting, or diarrhea : denies dysuria, hematuria or flank pain MSK: denies new joint pain, muscle weakness or swelling Skin: denies rash, itching or wound Neuro: denies numbness, tingling, dizziness Patient History <GERMANIA Mejía - Last Filed: 11/19/21 17:35> Medical History Hypertension Social History Smoking Status: Never smoker Smoking Status: Never smoker alcohol intake frequency: holidays/special occasions only Substance Use Type: does not use Exam <GERMANIA Mejía - Last Filed: 11/19/21 17:35> Narrative Exam Narrative: Independently reviewed vitals signs and nursing notes. General: cooperative, comfortable, in no acute distress, well groomed Head: atraumatic, symmetrical facial expressions Neck: supple Eyes: equal round and reactive, EOMI, conjunctiva normal Nose: nares patent, no rhinorrhea Mouth/Throat: moist mucus membranes Cardiovascular: regular rate and rhythm, no peripheral edema, warm extremities Respiratory: normal effort, able to speak in complete sentences, no audible wheezing, stridor, or rales. No retractions or tachypnea. Reported improved shortness of breath after MDI, good air movement throughout before and afterwards without wheezes. Respirations unlabored without hypoxia. GI: abdomen soft, nontender to palpation, nondistended, no masses, no exquisite tenderness with exam, without guarding or rebound. MSK: moves all extremities, neurovascularly intact, no weakness, normal tone Skin: brisk capillary refill, no rash, no erythema Neuro: normal speech and cognition, A&O x3 Psych: mental status is grossly normal, congruent mood, normal affect, pleasant and cooperative Initial Vital Signs Initial Vital Signs: Vital Signs Temperature 97.2 F L 11/19/21 10:49 Pulse Rate 64 11/19/21 10:49 Respiratory Rate 15 11/19/21 10:49 Blood Pressure 189/87 H 11/19/21 10:49 Pulse Oximetry 97 11/19/21 10:49 Oxygen Delivery Method 11/19/21 10:49 <Lyndon Stoddard DO - Last Filed: 11/20/21 14:29> Initial Vital Signs Initial Vital Signs: Vital Signs Temperature 97.2 F L 11/19/21 10:49 Pulse Rate 64 11/19/21 10:49 Respiratory Rate 15 11/19/21 10:49 Blood Pressure 189/87 H 11/19/21 10:49 Pulse Oximetry 97 11/19/21 10:49 Oxygen Delivery Method 11/19/21 10:49 Scores <GERMANIA Mejía - Last Filed: 11/19/21 17:35> Justice' Criteria for PE Clinical signs and symptoms of DVT: No PE is #1 Dx or equally likely: No Heart rate > 100: No Immobilization at least 3 days or surg in previous 4 weeks: No History of PE or DVT: No Hemoptysis: No Malignancy w/Treatment within 6 months or palliative: No Wells' PE Score total: 0 <Lyndon Stoddard DO - Last Filed: 11/20/21 14:29> Wells' Criteria for PE Wells' PE Score total: 0 Course <GERMANIA Mejía - Last Filed: 11/19/21 17:35> Orders Ordered: Discontinued Medications Albuterol (Albuterol Hfa Prepack) 1 box MISC SEEINSTR ONE Stop: 11/19/21 14:57 Last Admin: 11/19/21 15:07 Dose: 1 box Documented By: LAVONNE Benzonatate (Benzonatate 100 Mg Capsule) 100 mg PO NOW ONE Stop: 11/19/21 15:03 Last Admin: 11/19/21 15:08 Dose: 100 mg Documented By: LAVONNE Prednisone (Prednisone 20 Mg Tablet) 40 mg PO NOW ONE Stop: 11/19/21 14:57 Last Admin: 11/19/21 15:08 Dose: 40 mg Documented By: LAVONNE Vital Signs Vital signs: Vital Signs - 8 hr 11/19/21 10:49 07/13/22 14:26 11/19/21 14:26 Temperature 97.2 F L 97.5 F L Pulse Rate 64 55 L Respiratory Rate 15 Blood Pressure 189/87 H 164/77 H Pulse Oximetry 97 100 Oxygen Delivery Method Room Air 11/19/21 14:34 11/19/21 15:00 11/19/21 15:15 Temperature Pulse Rate 61 61 Respiratory Rate Blood Pressure 164/73 H Pulse Oximetry 100 97 97 Oxygen Delivery Method Room Air 11/19/21 15:30 11/19/21 16:25 Temperature Pulse Rate 67 60 Respiratory Rate 18 18 Blood Pressure 156/79 H 156/79 H Pulse Oximetry 99 98 Oxygen Delivery Method <Lyndon Stoddard DO - Last Filed: 11/20/21 14:29> Orders Ordered: Discontinued Medications Albuterol (Albuterol Hfa Prepack) 1 box MISC SEEINSTR ONE Stop: 11/19/21 14:57 Last Admin: 11/19/21 15:07 Dose: 1 box Documented By: LAVONNE Benzonatate (Benzonatate 100 Mg Capsule) 100 mg PO NOW ONE Stop: 11/19/21 15:03 Last Admin: 11/19/21 15:08 Dose: 100 mg Documented By: LAVONNE Prednisone (Prednisone 20 Mg Tablet) 40 mg PO NOW ONE Stop: 11/19/21 14:57 Last Admin: 11/19/21 15:08 Dose: 40 mg Documented By: LAVONNE Vital Signs Vital signs: Vital Signs - 8 hr 11/19/21 10:49 11/19/21 14:26 11/19/21 14:26 Temperature 97.2 F L 97.5 F L Pulse Rate 64 55 L Respiratory Rate 15 Blood Pressure 189/87 H 164/77 H Pulse Oximetry 97 100 Oxygen Delivery Method Room Air 11/19/21 14:34 11/19/21 15:00 11/19/21 15:15 Temperature Pulse Rate 61 61 Respiratory Rate Blood Pressure 164/73 H Pulse Oximetry 100 97 97 Oxygen Delivery Method Room Air 11/19/21 15:30 11/19/21 16:25 Temperature Pulse Rate 67 60 Respiratory Rate 18 18 Blood Pressure 156/79 H 156/79 H Pulse Oximetry 99 98 Oxygen Delivery Method MDM - SOB/Dyspnea <GERMANIA Mejía - Last Filed: 11/19/21 17:35> Lab Data Result diagrams: 11/19/21 12:05 11/19/21 12:05 Labs: Lab Results 11/19/21 11/19/21 11/19/21 Range/Units 12:05 12:05 12:05 WBC 6.3 (4.5-11.0) X10^3/uL RBC 4.18 (4.0-5.2) X10^6/uL Hgb 13.5 (12.0-16.0) g/dL Hct 38.3 (36-46) % MCV 91.7 (80-100) fL MCH 32.2 (26-34) PG MCHC 35.2 (30-36) % RDW 12.2 (11.6-14.8) % Plt Count 235 (150-400) X10^3/uL Neut % (Auto) 67.5 (50-75) % Lymph % (Auto) 19.1 L (25-40) % Converse % (Auto) 10.6 (3-14) % Eos % (Auto) 2.1 (2-4) % Baso % (Auto) 0.7 (0-2) % Neut # (Auto) 4200 (4055-2249) /uL Lymph # (Auto) 1200 (4760-4120) /uL Converse # (Auto) 700 (0-900) /uL Eos # (Auto) 100 (0-450) /uL Baso # (Auto) 0 (0-100) /uL Sodium 136 L (137-145) mmol/L Potassium 4.4 (3.4-5.1) mmol/L Chloride 100 (98-107) mmol/L Carbon Dioxide 29 (22-32) mmol/L BUN 14 (7-17) mg/dL Creatinine 0.60 (0.52-1.04) mg/dL Estimated GFR > 60 (>60) mL/min BUN/Creatinine Ratio 23.3 H (6-22) Glucose 91 (80-110) mg/dL Lactate 0.9 (0.7-2.1) mmol/L Calcium 8.7 (8.4-10.2) mg/dL Total Bilirubin 0.6 (0.2-1.3) mg/dL AST 43 H (14-36) IU/L ALT 42 H (<35) IU/L Alkaline Phosphatase 73 (38-126) U/L Total Protein 7.2 (6.3-8.2) g/dL Albumin 4.5 (3.5-5.0) g/dL Globulin 2.7 (1.7-4.1) g/dL Albumin/Globulin Ratio 1.7 (1.0-2.8) Imaging Data Chest x-ray: Radiologist's Impression: PROCEDURE:? XR CHEST 2V ? INDICATIONS:? shortness of breath ? TECHNIQUE:? 2 views of the chest were acquired.? ? COMPARISON:? [facility], CR, XR CHEST 1V, 04/19/2018, 14:43. ? FINDINGS:? ? Surgical changes and devices:? None.? ? Lungs and pleura:? Lungs are clear.? No pleural effusions or pneumothorax.? ? Mediastinum:? Mediastinal contours are normal.? Heart size is normal.? ? Bones and chest wall:? Thoraco-lumbar spine scoliosis.? No suspicious bony abnormalities. ?Soft tissues appear unremarkable.? ? IMPRESSION:? No acute cardiopulmonary disease process. ? ? Dictated by: Deidre Hsieh MD, PhD on 11/19/2021 at 11:31 ? ? Approved by: Deidre Hsieh MD, PhD on 11/19/2021 at 11:32 ? ECG Data Interpretation: EKG independently reviewed by Dr. Stoddard reveals normal sinus rhythm at 62 bpm with regular axis and intervals. No STEMI, ST segment changes, arrhythmia, or acute ischemic changes. MDM Narrative Medical decision making narrative: 65-year-old female with history of hypertension, on losartan who presents to the emergency department complaining of seven days of dry cough, episodes of shortness of breath primarily at nighttime, feeling of breathlessness and reports that this comes on occasionally and not with exertion. She denies any chest pain, chest pressure, dizziness, fever, denies any pain anywhere, denies any edema or history CHF. She denies any history of asthma or COPD, she is a smoker, states that her son has exercise-induced asthma and she has periods of shortness of breath which she reports is similar to those episodes. On exam, she does not have any wheezing although she is breathing shallow, she does not have tachypnea or hypoxia, her respirations are unlabored, she does have a mild dry cough. X-ray of her chest shows no acute cardiopulmonary disease process, incidentally she has thoracolumbar spine scoliosis, no patchy opacities or infiltrates. Patient was prescribed a Medrol Dosepak, she was given 40 mg of prednisone in the emergency department for presumed bronchitis with bronchospasm. She was given an albuterol inhaler, her peak flow was measured, she reached to 290, patient reports feeling better after her albuterol inhaler. She is encouraged to follow-up with her primary care provider within the next 2-3 days, she was given a prescription for Tessalon Perles for her dry cough, encouraged to stay hydrated, use Tylenol for any pain, return to the emergency department for any fever, worsening shortness of breath, breathlessness, or other concerning symptom. She denies any chest pain, does not have any COVID symptoms at this time. She is had 3- COVID tests over the last week. Patient is appropriate and amenable to discharge home. Vital signs are stable on repeat examination is unremarkable. Patient has been informed of results. Patient has been given strict return to ER precautions for any new or worsening symptoms. Patient understands to follow up closely with outpatient providers as instructed. Patient understands plan and agrees to discharge home. All questions and concerns answered at this time. <Lnydon Stoddard, DO - Last Filed: 11/20/21 14:29> Lab Data Labs: Lab Results 11/19/21 11/19/21 11/19/21 Range/Units 12:05 12:05 12:05 WBC 6.3 (4.5-11.0) X10^3/uL RBC 4.18 (4.0-5.2) X10^6/uL Hgb 13.5 (12.0-16.0) g/dL Hct 38.3 (36-46) % MCV 91.7 (80-100) fL MCH 32.2 (26-34) PG MCHC 35.2 (30-36) % RDW 12.2 (11.6-14.8) % Plt Count 235 (150-400) X10^3/uL Neut % (Auto) 67.5 (50-75) % Lymph % (Auto) 19.1 L (25-40) % Converse % (Auto) 10.6 (3-14) % Eos % (Auto) 2.1 (2-4) % Baso % (Auto) 0.7 (0-2) % Neut # (Auto) 4200 (3836-2683) /uL Lymph # (Auto) 1200 (4845-3893) /uL [place]verse # (Auto) 700 (0-900) /uL Eos # (Auto) 100 (0-450) /uL Baso # (Auto) 0 (0-100) /uL Sodium 136 L (137-145) mmol/L Potassium 4.4 (3.4-5.1) mmol/L Chloride 100 (98-107) mmol/L Carbon Dioxide 29 (22-32) mmol/L BUN 14 (7-17) mg/dL Creatinine 0.60 (0.52-1.04) mg/dL Estimated GFR > 60 (>60) mL/min BUN/Creatinine Ratio 23.3 H (6-22) Glucose 91 (80-110) mg/dL Lactate 0.9 (0.7-2.1) mmol/L Calcium 8.7 (8.4-10.2) mg/dL Total Bilirubin 0.6 (0.2-1.3) mg/dL AST 43 H (14-36) IU/L ALT 42 H (<35) IU/L Alkaline Phosphatase 73 (38-126) U/L Total Protein 7.2 (6.3-8.2) g/dL Albumin 4.5 (3.5-5.0) g/dL Globulin 2.7 (1.7-4.1) g/dL Albumin/Globulin Ratio 1.7 (1.0-2.8) Discharge Plan Departure Patient Disposition: Home Clinical Impression: Bronchitis, Shortness of Breath Instructions: Acute Bronchitis, DI for Shortness of Breath Activity Restrictions/Additional Instructions: *You have been diagnosed with an acute exacerbation of shortness of breath, this is likely bronchitis. Please take the steroid pack according to the package directions, use the albuterol inhaler every 4 hours as needed for shortness of breath, it is okay to use more often than that if needed but it might make your heart rate elevated for period of time. Please follow-up with Dr. Boston and see if you would benefit from any inhaled steroids or if you improve altogether from this episode. Please return to the emergency department if you develop a fever, worsening fatigue, worsening shortness of breath or cough. Please stay hydrated, take Tylenol as needed for pain, you can try Claritin or another allergy medication for any sinus symptoms or productive cough, it might help a little bit. *What to do: *Please continue to take your regular medications as directed. [ x] New medication prescriptions sent to your pharmacy: [ DOD] [ ] New medication written as a paper prescription [ ] No new medications given *Please follow up with your primary care provider in 2-3 days, call for an appointment. Let them know you were seen in the Emergency Department and that we asked that you be seen for follow-up. We will electronically transmit a record of today's note if your PCP is in our system *If you do not have a primary care provider please contact [phone] to establish care with one of the [facility] primary care providers. *Return to Emergency Department if you should have any new, worsening or concerning symptoms, such as [fever greater than 101F, chills, worsening pain, persistent vomiting or other bothersome symptoms] Prescriptions: New methylprednisolone [Medrol (Arsenio)] 4 mg tablets,dose pack See Rx Instructions .ROUTE .COMPLEX Qty: 21 0RF Rx Instructions: orally per package directions albuterol sulfate 90 mcg/actuation HFA aerosol inhaler 1 inh inhalation QID PRN (Reason: shortness of breath or wheezing) Qty: 6.7 0RF benzonatate 200 mg capsule 200 mg PO BID PRN (Reason: cough) Qty: 14 0RF No Action multivitamin Tablet 1 tab PO DAILY lisinopril 5 mg tablet 5 mg PO QPM Referrals: Han Boston DO [Primary Care Provider] - Visit Report Forms: Patient Portal/API <Lyndon Stoddard DO - Last Filed: 11/20/21 14:29> [facility] Cos[facility] Attestation: I was immediately available in the department for consultation. This documentation has been reviewed and I agree with assessment and plan. Supervised by Lyndon Stoddard DO
[2021-11-19] MEDS: ALBUTEROL HFA PREPACK 1 BOX MISC (15:07)
[2021-11-19] MEDS: predniSONE 20 MG TABLET 40 MG PO (15:08)
[2021-11-19] MEDS: BENZONATATE 100 MG CAPSULE PO (15:08)
== END 2021-11-19 16:25 | disposition home or self-care (01) ==
PROVIDERS: Emergency Medicine; Emergency Provider Nurse Practitioner Critical Care Medicine; PCP Family Medicine
DX: J40 Bronchitis, not specified as acute or chronic (principal); R06.02 Shortness of breath
CPT/HCPCS: 36415; 71046; 80053; 83605; 85025; 93005; 93010; 94150; 94640; 99283; 99284